=== PATIENT | male | born 1925 | race Caucasian/White ===

== ENCOUNTER 2017-02-19 16:00 | Inpatient (IN) | payer OTHER, MEDICARE ==
[2017-02-19] MEDS ORDERED: SODIUM CHLORIDE 250 ML IV STA ×2 (16:12→17:44)
[2017-02-19] MEDS ORDERED: ONDANSETRON 4 MG/2 ML VIAL IVPB ONE (16:12)
[2017-02-19] MEDS ORDERED: ONDANSETRON 4 MG/2 ML VIAL ONE ×2 (16:18→16:28)
[2017-02-19] MEDS ORDERED: morphine CARPU-JECT 2 MG/1 ML DISP.SYRIN IVPUSH ONE (16:24)
[2017-02-19] MEDS ORDERED: morphine CARPU-JECT 4 MG/1 ML DISP.SYRIN IVPUSH ONE (16:26)
--- NOTE | 2017-02-19 16:26 | PDOC ---
History of Present Illness - General History Source: Patient, Family Exam Limitations: No Limitations - History of Present Illness Initial Comments: 02/19/17 16:53 The patient is a 89 year old male, with a significant past medical history of atrial fibrillation , diverticulitis, bph, prior colon complications, and prior epistaxis, coronary heart disease, pacemaker, CT evidence of CVA without symptoms, who presents to the emergency department with, lower quadrant abdominal and nausea pain beginning this morning. As per patients son who lives with him, he woke up this morning with abdominal pain. He reports the patient ate at noon which made the pain worsen. As per patients son, he neither had any bowel movements nor passed gas since last night. He reports nausea without emesis.Patient reports dry mouth. He denies any recent fevers, chills, headache or dizziness. He denies any recent vomit, diarrhea or constipation. He denies any recent chest pain or shortness of breath. He denies any recent dysuria, frequency, urgency or hematuria. Allergies: Iodinated Contrast- Oral and IV Dye, Penicillins, Iodine Social History: Nonsmoker. Denies EtOH use and recreational drug use. Primary Care Physician: Dr. Jimmie Simms <Law Mann - Last Filed: 02/19/17 17:14> <J Luis Harvey - Last Filed: 02/24/17 08:35> - General Chief Complaint: Pain Stated Complaint: ABD PAIN, NAUSEA Time Seen by Provider: 02/19/17 16:10 Past History <Law Mann - Last Filed: 02/19/17 17:14> - Past Medical History Cardiac Disorders: Yes (A-FIB, PPM) COPD: No GI Disorders: Yes (DIVERTICULITIS) Disorders: Yes (BPH) HTN: Yes - Surgical History Abdominal Surgery: Yes (COLON RESECTION) - Suicide/Smoking/Psychosocial Hx Smoking Status: No Smoking History: Never smoked Have you smoked in the past 12 months: No Number of Cigarettes Smoked Daily: 0 Hx Alcohol Use: No Drug/Substance Use Hx: No Substance Use Type: None Hx Substance Use Treatment: No <J Luis Harvey - Last Filed: 02/24/17 08:35> - Past Medical History Allergies/Adverse Reactions: Allergies Allergy/AdvReac Type Severity Reaction Status Date / Time Iodinated Contrast- Oral and Allergy Intermediate Swelling Verified 02/19/17 16: 02 IV Dye [IV Dye, Iodine Containing Contrast ] iodine Allergy Verified 02/19/17 16:02 Home Medications: Ambulatory Orders Multivitamins [Multivit ([facility])] 1 tab PO DAILY 05/28/14 Cholecalciferol (Vitamin D3) [Vitamin D3] 2,000 unit PO DAILY 02/19/17 Warfarin Sodium [Coumadin] 1 mg PO ASDIR 02/19/17 Review of Systems - Review of Systems Comments:: 02/19/17 16:53 CONSTITUTIONAL: Absent: fever, no chills, no fatigue EYES: Absent: visual changes ENT: Absent: ear pain, no sore throat CARDIOVASCULAR: Absent: chest pain, no palpitations RESPIRATORY: Absent: cough, no SOB GI: + Diffuse Abdominal Pain +Nausea Absent: no vomiting, no constipation, no diarrhea GENITOURINARY: Absent: dysuria, no frequency, no hematuria MUSKULOSKELETAL: Absent: back pain, no arthralgia, no myalgia SKIN: Absent: rash NEURO: Absent: headache All Other Systems: Reviewed and Negative <Law Mann - Last Filed: 02/19/17 17:14> *Physical Exam - Vital Signs Last Vital Signs Temp Pulse Resp BP Pulse Ox 97.3 F L 78 18 148/97 96 02/19/17 16:00 02/19/17 16:00 02/19/17 16:00 02/19/17 16:00 02/19/17 16:00 - Physical Exam Comments: 02/19/17 17:14 GENERAL: Well developed, well nourished. Awake and alert. Cooperative. HEENT: +Dry mucous membranes. Normocephalic, atraumatic. PERRLA, EOMI. No conjunctival pallor. Sclera are non-icteric. Oropharynx is clear. NECK: Supple. Full ROM. No JVD. Carotid pulses 2+ and symmetric, without bruits. No thyromegaly. No lymphadenopathy. CARDIOVASCULAR: +Cardiac regular 2/6 systolic ejection murmur. Regular rate. No rubs, or gallops. Distal pulses are 2+ and symmetric. PULMONARY: No evidence of respiratory distress. Lungs clear to auscultation bilaterally. No wheezing, rales or rhonchi. ABDOMINAL: +Moderately distended, bowel sounds hypoactive, mild diffuse tenderness to palpation without localization no masses palpable. Soft. No rebound or guarding. No organomegaly. MUSCULOSKELETAL Normal range of motion at all joints. No bony deformities or tenderness. No CVA tenderness. EXTREMITIES: No cyanosis. No clubbing. No edema. No calf tenderness. SKIN: Warm and dry. Normal capillary refill. No rashes. No jaundice. NEUROLOGICAL: Alert, awake, appropriate. Cranial nerves 2-12 intact. No deficits to light touch and temperature in face, upper extremities and lower extremities. No motor deficits in the in face, upper extremities and lower extremities. Normoreflexic in the upper and lower extremities. Normal speech. Toes are down- going bilaterally. Gait is normal without ataxia. PSYCHIATRIC: Cooperative. Good eye contact. Appropriate mood and affect. <Law Mann - Last Filed: 02/19/17 17:14> - Vital Signs Last Vital Signs Temp Pulse Resp BP Pulse Ox 97.3 F L 78 18 148/97 96 02/19/17 16:00 02/19/17 16:00 02/19/17 16:00 02/19/17 16:00 02/19/17 16:00 <J Luis Harvey - Last Filed: 02/24/17 08:35> ED Treatment Course - LABORATORY CBC & Chemistry Diagram: 02/19/17 16:35 02/19/17 10:30 - Medications Given in the ED: ED Medications Discontinued Medications Generic Name Dose Route Start Last Admin Trade Name Daryl PRN Reason Stop Dose Admin Sodium Chloride 250 mls @ 500 mls/hr 02/19/17 16:12 02/19/17 16:35 Normal Saline - IV 02/19/17 16:41 500 mls/hr ASDIR STA Administration Morphine Sulfate 2 mg 02/19/17 16:24 02/19/17 16:47 Morphine Injection - IVPUSH 02/19/17 16:25 Not Given ONCE ONE Morphine Sulfate 4 mg 02/19/17 16:26 02/19/17 16:35 Morphine Injection - IVPUSH 02/19/17 16:27 4 mg ONCE ONE Administration Ondansetron HCl 4 mg 02/19/17 16:12 02/19/17 16:30 Zofran Injection IVPB 02/19/17 16:13 4 mg ONCE ONE Administration <Law Mann - Last Filed: 02/19/17 17:14> - LABORATORY CBC & Chemistry Diagram: 02/21/17 06:00 02/21/17 06:00 <J Luis Harvey - Last Filed: 02/24/17 08:35> Medical Decision Making - Medical Decision Making 02/19/17 16:26 Abdominal pain since this morning. Crampy, intermittent. Nausea but no vomiting. No bowel movements and passing no gas today. Multiple surgical procedures on the abdomen, including cholecystectomy, appendectomy, and 2 surgeries for diverticulitis, the last of which was 5 years ago and consisted of removal of almost the entire colon. The patient does not have a colostomy, but he has poor sphincter tone and fecal incontinence, according to his son Extensive past medical history including atrial fibrillation, on warfarin, coronary artery disease, sick sinus syndrome with pacemaker, multiple CVAs discovered on imaging, without clinical symptoms. BPH. Depression. Labile blood pressure which is sometimes high, sometimes low, according to his son. No diabetes. Abdomen is mildly distended. Bowel sounds were not heard despite auscultation for 60 seconds. There is diffuse tenderness to palpation without localization, with no guarding or rebound. There is fullness in both inguinal areas but no definite hernia is palpable. Remainder of the exam is normal. Most likely etiology is small bowel obstruction secondary to adhesions. Other possibilities viral gastroenteritis, renal colic, recurrent diverticulitis, mesenteric ischemia. Plan is IV hydration, Zofran, morphine, and imaging. GI and surgical consultations. Patient with no further vomiting. Pain is controlled and he is comfortable. Abdominal x-rays are nondiagnostic. CT scan is pending. Signed out to Dr. Mcghee 7 PM for further evaluation and disposition after CT scan is reviewed. <J Luis Harvey - Last Filed: 02/24/17 08:35> *DC/Admit/Observation/Transfer - Attestations Scribe Attestion: 02/19/17 16:54 Documentation prepared by Law Mann, acting as administrative medical director for J Luis Spear MD. <Law Mann - Last Filed: 02/19/17 17:14> <J Luis Harvey - Last Filed: 02/24/17 08:35> Diagnosis at time of Disposition: Small bowel obstruction due to adhesions - Discharge Dispostion Disposition: HOME Condition at time of disposition: Improved
[2017-02-19] MEDS ORDERED: morphine SULFATE 4 MG/ML VIAL ONE (16:30)
[2017-02-19 17:01] LABS: BASO % 0.7 % (0-2.0); EOS % 1.7 % (0-4.5); HEMATOCRIT 54.1 % (35.4-49); HEMOGLOBIN 18.8 GM/dl (11.7-16.9); LYMPH % 11.2 % (8-40); MCH 32.2 pg (25.7-33.7); MCHC 34.8 g/dl (32.0-35.9); MEAN CELL VOLUME 92.5 fl (80-96); MEAN PLT VOLUME 11.3 fl (7.5-11.1); MONO % 7.4 % (3.8-10.2); PLATELET COUNT 159 K/MM3 (134-434); RBC 5.84 M/mm3 (4.00-5.60); RDW 13.3 % (11.9-15.9)
[2017-02-19 17:02] LABS: INR 3.08 (0.82-1.09); PROTHROMBIN TIME (PATIENT) 33.7 SEC (10.2-13.0)
[2017-02-19 17:10] LABS: ALK PHOS 120 U/L (32-92); ANION GAP 8 (8-16); BILIRUBIN,TOTAL 1.4 mg/dl (0.2-1.0); BLOOD UREA NITROGEN 21 mg/dl (7-18); CALCIUM 9.6 mg/dl (8.4-10.2); CHLORIDE 102 mmol/L (98-107); CO2 26 mmol/L (22-28); CREATININE 1.1 mg/dl (0.6-1.3); GLUCOSE,RANDOM 122 mg/dl (74-106); POTASSIUM 4.2 mmol/L (3.5-5.1); SGOT/AST 40 U/L (10-42); SGPT/ALT 44 U/L (10-40); SODIUM 136 mmol/L (136-145); TOT PROT 7.2 g/dl (6.4-8.3)
[2017-02-19 17:26] LABS: TROPONIN I (DFP) < 0.03 ng/ml (0.03-0.50)
--- NOTE | 2017-02-19 21:11 | PDOC ---
*Physical Exam - Vital Signs Last Vital Signs Temp Pulse Resp BP Pulse Ox 97.6 F 86 18 139/64 95 02/19/17 20:34 02/19/17 20:34 02/19/17 20:34 02/19/17 20:34 02/19/17 20:34 <Flower Diaz I - Last Filed: 02/19/17 21:26> - Vital Signs Last Vital Signs Temp Pulse Resp BP Pulse Ox 97.6 F 86 18 139/64 95 02/19/17 20:34 02/19/17 20:34 02/19/17 20:34 02/19/17 20:34 02/19/17 20:34 <Law Mann - Last Filed: 02/19/17 21:55> ED Treatment Course - LABORATORY CBC & Chemistry Diagram: 02/19/17 16:35 02/19/17 10:30 - ADDITIONAL ORDERS Additional order review: Laboratory Results 02/19/17 02/19/17 02/19/17 17:42 10:30 10:30 PT with INR 33.7 H INR 3.08 H D Sodium 136 Potassium 4.2 Chloride 102 Carbon Dioxide 26 D Anion Gap 8 BUN 21 H Creatinine 1.1 Creat Clearance w eGFR > 60 Random Glucose 122 H Calcium 9.6 Total Bilirubin 1.4 H AST 40 D ALT 44 H D Alkaline Phosphatase 120 H Creatine Kinase 56 Troponin I < 0.03 L Total Protein 7.2 Albumin 4.0 Stool Occult Blood Negative 02/19/17 16:35 RBC 5.84 H MCV 92.5 MCHC 34.8 RDW 13.3 MPV 11.3 H D Neutrophils % 79.0 Lymphocytes % 11.2 D Monocytes % 7.4 Eosinophils % 1.7 Basophils % 0.7 - Medications Given in the ED: ED Medications Discontinued Medications Generic Name Dose Route Start Last Admin Trade Name Freq PRN Reason Stop Dose Admin Sodium Chloride 250 mls @ 500 mls/hr 02/19/17 16:12 02/19/17 16:35 Normal Saline - IV 02/19/17 16:41 500 mls/hr ASDIR STA Administration Sodium Chloride 250 mls @ 500 mls/hr 02/19/17 17:44 02/19/17 17:40 Normal Saline - IV 02/19/17 18:13 500 mls/hr ASDIR STA Administration Morphine Sulfate 2 mg 02/19/17 16:24 02/19/17 16:47 Morphine Injection - IVPUSH 02/19/17 16:25 Not Given ONCE ONE Morphine Sulfate 4 mg 02/19/17 16:26 02/19/17 16:35 Morphine Injection - IVPUSH 02/19/17 16:27 4 mg ONCE ONE Administration Ondansetron HCl 4 mg 02/19/17 16:12 02/19/17 16:30 Zofran Injection IVPB 02/19/17 16:13 4 mg ONCE ONE Administration <Flower Diaz I - Last Filed: 02/19/17 21:26> - LABORATORY CBC & Chemistry Diagram: 02/19/17 16:35 02/19/17 10:30 - ADDITIONAL ORDERS Additional order review: Laboratory Results 02/19/17 02/19/17 02/19/17 17:42 10:30 10:30 PT with INR 33.7 H INR 3.08 H D Sodium 136 Potassium 4.2 Chloride 102 Carbon Dioxide 26 D Anion Gap 8 BUN 21 H Creatinine 1.1 Creat Clearance w eGFR > 60 Random Glucose 122 H Calcium 9.6 Total Bilirubin 1.4 H AST 40 D ALT 44 H D Alkaline Phosphatase 120 H Creatine Kinase 56 Troponin I < 0.03 L Total Protein 7.2 Albumin 4.0 Stool Occult Blood Negative 02/19/17 16:35 RBC 5.84 H MCV 92.5 MCHC 34.8 RDW 13.3 MPV 11.3 H D Neutrophils % 79.0 Lymphocytes % 11.2 D Monocytes % 7.4 Eosinophils % 1.7 Basophils % 0.7 - Medications Given in the ED: ED Medications Discontinued Medications Generic Name Dose Route Start Last Admin Trade Name Freq PRN Reason Stop Dose Admin Sodium Chloride 250 mls @ 500 mls/hr 02/19/17 16:12 02/19/17 16:35 Normal Saline - IV 02/19/17 16:41 500 mls/hr ASDIR STA Administration Sodium Chloride 250 mls @ 500 mls/hr 02/19/17 17:44 02/19/17 17:40 Normal Saline - IV 02/19/17 18:13 500 mls/hr ASDIR STA Administration Morphine Sulfate 2 mg 02/19/17 16:24 02/19/17 16:47 Morphine Injection - IVPUSH 02/19/17 16:25 Not Given ONCE ONE Morphine Sulfate 4 mg 02/19/17 16:26 02/19/17 16:35 Morphine Injection - IVPUSH 02/19/17 16:27 4 mg ONCE ONE Administration Ondansetron HCl 4 mg 02/19/17 16:12 02/19/17 16:30 Zofran Injection IVPB 02/19/17 16:13 4 mg ONCE ONE Administration <Law Mann - Last Filed: 02/19/17 21:55> Progress Note - Progress Note Progress Note: Care of this patient was transferred to [place] from Dr. Montemayor at 1900 hrs. This is an 89-year-old male with history of multiple surgeries in the past and a history of partial small bowel obstruction in the past. Patient has had a hemicolectomy. Patient comes in complaining of abdominal pain nausea and vomiting. Patient's flat and upright didn't show a possibly of gas in the lower intestines. But no dilated loops of bowel. Patient has a mildly elevated white count but no left shift Patient has a CT of the abdomen and pelvis pending to rule out small bowel obstruction 20:30 CT of the abdomen does show a partial versus complete small bowel obstruction. Patient will be admitted to a observation bed for management of the obstruction. NG tube will be placed. <Flower Diaz I - Last Filed: 02/19/17 21:26> Medical Decision Making - Medical Decision Making 02/19/17 21:12 9:05PM Call placed to Dr. Angel Sandra's answering service, awaiting call back. 9:54pm A second call was placed to Dr. Angel Sandra's answering service, awaiting call back. Documentation prepared by Law Mann, acting as medical appointment scheduler for Flower Diaz MD. <Law Mann - Last Filed: 02/19/17 21:55> *DC/Admit/Observation/Transfer - Discharge Dispostion Admit: Yes <Flower Diaz I - Last Filed: 02/19/17 21:26> <Law Mann - Last Filed: 02/19/17 21:55> Diagnosis at time of Disposition: Small bowel obstruction due to adhesions - Discharge Dispostion Condition at time of disposition: Stable - Referrals Referrals: Jimmie Simms MD [Primary Care Provider] - - Patient Instructions - Post Discharge Activity
[2017-02-19 23:08] VITALS: BMI 27.8
[2017-02-19] MEDS ORDERED: SODIUM CHLORIDE 1,000 ML IV ONE (23:37)
[2017-02-19 23:40] LABS: URINE APPEARANCE Clear; URINE BILIRUBIN Negative (NEGATIVE); URINE BLOOD Negative (NEGATIVE); URINE GLUCOSE (UA) Negative (NEGATIVE); URINE KETONE Negative (NEGATIVE); URINE NITRITE Negative (NEGATIVE); URINE PROTEIN Trace (NEGATIVE); URINE UROBILINOGEN 0.2 (0.2-1.0)
[2017-02-19 23:42] LABS: URINE COLOR YELLOW
[2017-02-19] MEDS ORDERED: SODIUM CHLORIDE 1,000 ML IV SCH (23:45)
[2017-02-20 07:50] LABS: BASO % 1.3 % (0-2.0); EOS % 2.5 % (0-4.5); HEMATOCRIT 48.5 % (35.4-49); HEMOGLOBIN 16.2 GM/dl (11.7-16.9); LYMPH % 11.3 % (8-40); MCH 31.2 pg (25.7-33.7); MCHC 33.4 g/dl (32.0-35.9); MEAN CELL VOLUME 93.3 fl (80-96); MONO % 5.2 % (3.8-10.2); NEUT % 79.7 % (42.8-82.8); PLATELET COUNT 125 K/MM3 (134-434); RBC 5.19 M/mm3 (4.00-5.60); RDW 13.4 % (11.9-15.9); WHITE BLOOD COUNT 8.7 K/mm3 (4.0-10.8)
[2017-02-20 07:56] LABS: INR 3.46 (0.82-1.09); PROTHROMBIN TIME (PATIENT) 37.8 SEC (10.2-13.0)
[2017-02-20 07:58] LABS: ANION GAP 5 (8-16); BLOOD UREA NITROGEN 18 mg/dl (7-18); CALCIUM 8.2 mg/dl (8.4-10.2); CHLORIDE 109 mmol/L (98-107); CO2 24 mmol/L (22-28); GLUCOSE,RANDOM 91 mg/dl (74-106); MAGNESIUM 1.6 mg/dL (1.8-2.4); POTASSIUM 4.4 mmol/L (3.5-5.1); SODIUM 138 mmol/L (136-145)
[2017-02-20] MEDS ORDERED: METOCLOPRAMIDE HCL INJECTION 10 MG/2 ML VIAL IVPUSH PRN (09:49)
[2017-02-20] MEDS ORDERED: morphine CARPU-JECT 2 MG/1 ML DISP.SYRIN IVPUSH PRN (09:49)
--- NOTE | 2017-02-20 09:50 | HP ---
CHIEF COMPLAINT:abdominal pain PCP:[facility] HISTORY OF PRESENT ILLNESS: 89yo M with PMH afib on coumadin, SSS s/p PPM, diverticulitis s/p hemicolectomy , CVA, open appedectomy and open cholecystectomy presented with sudden onset of abdominal pain. states it was epigastric and did not improve. assoc with abdominal bloating. had similar episode in the past can not recall if he had surgery at that time. denies Cp, SOB, fever, chills, N/V/C/D. last BM was 2 days ago. ER course was notable for: (1) (2) (3) Recent Travel:none PAST MEDICAL HISTORY:as above PAST SURGICAL HISTORY:as above Social History: Smoking:denies Alcohol:denies Drugs: denies Family History:not contributory Allergies Iodinated Contrast- Oral and IV Dye [IV Dye, Iodine Containing Contrast ] Allergy (Intermediate, Verified 02/19/17 16:02) Swelling iodine Allergy (Verified 02/19/17 16:02) HOME MEDICATIONS: Home Medications Medication Instructions Recorded Multivitamins [Tab-A-Vit -] 1 tab PO DAILY 05/28/14 Cholecalciferol (Vitamin D3) 2,000 unit PO DAILY 02/19/17 [Vitamin D] Warfarin Sodium [Coumadin] 1 mg PO ASDIR 02/19/17 REVIEW OF SYSTEMS CONSTITUTIONAL: Absent: fever, chills, diaphoresis, generalized weakness, malaise, loss of appetite, weight change HEENT: Absent: rhinorrhea, nasal congestion, throat pain, throat swelling, difficulty swallowing, mouth swelling, ear pain, eye pain, visual changes CARDIOVASCULAR: Absent: chest pain, syncope, palpitations, irregular heart rate, lightheadedness , peripheral edema RESPIRATORY: Absent: cough, shortness of breath, dyspnea with exertion, orthopnea, wheezing, stridor, hemoptysis GASTROINTESTINAL: abdominal pain, abdominal distension Absent:, nausea, vomiting, diarrhea, constipation, melena, hematochezia GENITOURINARY: Absent: dysuria, frequency, urgency, hesitancy, hematuria, flank pain, genital pain MUSCULOSKELETAL: Absent: myalgia, arthralgia, joint swelling, back pain, neck pain SKIN: Absent: rash, itching, pallor HEMATOLOGIC/IMMUNOLOGIC: Absent: easy bleeding, easy bruising, lymphadenopathy, frequent infections ENDOCRINE: Absent: unexplained weight gain, unexplained weight loss, heat intolerance, cold intolerance NEUROLOGIC: Absent: headache, focal weakness or paresthesias, dizziness, unsteady gait, seizure, mental status changes, bladder or bowel incontinence PSYCHIATRIC: Absent: anxiety, depression, suicidal or homicidal ideation, hallucinations. PHYSICAL EXAMINATION Vital Signs - 24 hr 02/19/17 02/19/17 02/19/17 16:00 20:34 22:17 Temperature 97.3 F L 97.6 F 97.9 F Pulse Rate 78 88 Pulse Rate [ 86 Left Apical] Respiratory 18 18 18 Rate Blood Pressure 148/97 133/82 Blood Pressure 139/64 [Right Arm] O2 Sat by Pulse 96 95 96 Oximetry (%) 02/19/17 02/20/17 02/20/17 22:42 06:21 08:02 Temperature 97.9 F 97.7 F Pulse Rate 88 83 Pulse Rate [ Left Apical] Respiratory 18 19 18 Rate Blood Pressure 133/82 147/76 Blood Pressure [Right Arm] O2 Sat by Pulse 96 97 Oximetry (%) GENERAL: Awake, alert, and fully oriented, in no acute distress. HEAD: Normal with no signs of trauma. EYES: Pupils equal, round and reactive to light, extraocular movements intact, sclera anicteric, conjunctiva clear. No lid lag. EARS, NOSE, THROAT: Ears normal, nares patent, oropharynx clear without exudates. Moist mucous membranes. NECK: Normal range of motion, supple without lymphadenopathy, JVD, or masses. LUNGS: Breath sounds equal, clear to auscultation bilaterally. No wheezes, and no crackles. No accessory muscle use. HEART: Regular rate and rhythm, normal S1 and S2 without murmur, rub or gallop. ABDOMEN: Soft, + mild distended, hypoactive BS. nontender, dull to percusion, multiple old surgical scars no guarding, no rebound, no masses. No hepatomegaly or splenomegaly. MUSCULOSKELETAL: Normal range of motion at all joints. No bony deformities or tenderness. No CVA tenderness. UPPER EXTREMITIES: 2+ pulses, warm, well-perfused. No cyanosis. No clubbing. No peripheral edema. LOWER EXTREMITIES: 2+ pulses, warm, well-perfused. No calf tenderness. No peripheral edema. NEUROLOGICAL: Cranial nerves II-XII intact. Normal speech. Normal gait. PSYCHIATRIC: Cooperative. Good eye contact. Appropriate mood and affect. SKIN: Warm, dry, normal turgor, no rashes or lesions noted, normal capillary refill. Laboratory Results - last 24 hr 02/19/17 02/19/17 02/19/17 10:30 10:30 16:35 WBC 13.0 H D RBC 5.84 H Hgb 18.8 H D Hct 54.1 H MCV 92.5 MCH 32.2 MCHC 34.8 RDW 13.3 Plt Count 159 D MPV 11.3 H D Neutrophils % 79.0 Lymphocytes % 11.2 D Monocytes % 7.4 Eosinophils % 1.7 Basophils % 0.7 PT with INR 33.7 H INR 3.08 H D Sodium 136 Potassium 4.2 Chloride 102 Carbon Dioxide 26 D Anion Gap 8 BUN 21 H Creatinine 1.1 Creat Clearance w eGFR > 60 Random Glucose 122 H Calcium 9.6 Magnesium Total Bilirubin 1.4 H AST 40 D ALT 44 H D Alkaline Phosphatase 120 H Creatine Kinase 56 Troponin I < 0.03 L Total Protein 7.2 Albumin 4.0 Urine Color Urine Appearance Urine pH Ur Specific [place] Urine Protein Urine Glucose (UA) Urine Ketones Urine Blood Urine Nitrite Urine Bilirubin Urine Urobilinogen Ur Leukocyte Esterase Stool Occult Blood 02/19/17 02/19/17 02/20/17 17:42 23:30 07:30 WBC 8.7 D RBC 5.19 Hgb 16.2 D Hct 48.5 MCV 93.3 MCH 31.2 MCHC 33.4 RDW 13.4 Plt Count 125 L D MPV 10.0 D Neutrophils % 79.7 Lymphocytes % 11.3 Monocytes % 5.2 Eosinophils % 2.5 Basophils % 1.3 PT with INR INR Sodium Potassium Chloride Carbon Dioxide Anion Gap BUN Creatinine Creat Clearance w eGFR Random Glucose Calcium Magnesium Total Bilirubin AST ALT Alkaline Phosphatase Creatine Kinase Troponin I Total Protein Albumin Urine Color Yellow Urine Appearance Clear Urine pH 5.0 Ur Specific [place] 1.025 Urine Protein Trace Urine Glucose (UA) Negative Urine Ketones Negative Urine Blood Negative Urine Nitrite Negative Urine Bilirubin Negative Urine Urobilinogen 0.2 Ur Leukocyte Esterase Negative Stool Occult Blood Negative 02/20/17 02/20/17 07:30 07:30 WBC RBC Hgb Hct MCV MCH MCHC RDW Plt Count MPV Neutrophils % Lymphocytes % Monocytes % Eosinophils % Basophils % PT with INR 37.8 H INR 3.46 H Sodium 138 Potassium 4.4 Chloride 109 H Carbon Dioxide 24 Anion Gap 5 L BUN 18 Creatinine 1.0 Creat Clearance w eGFR Random Glucose 91 D Calcium 8.2 L Magnesium 1.6 L Total Bilirubin AST ALT Alkaline Phosphatase Creatine Kinase Troponin I Total Protein Albumin Urine Color Urine Appearance Urine pH Ur Specific [place] Urine Protein Urine Glucose (UA) Urine Ketones Urine Blood Urine Nitrite Urine Bilirubin Urine Urobilinogen Ur Leukocyte Esterase Stool Occult Blood ASSESSMENT/PLAN: 89yo M with PMH as above with multiple abdominal surgeries presented with SBO 1. SBO- medicine admission. NGT placed in ER with 300 dark bile. only about 100cc today this far. continue on low suction. pt now having flatus. Obtain AXR to evaluate. serial abdominal exams, daily AXR. cont NPO, IVF, pain and antiemetics. Surgery consulted 2. SUpratherapeutic INR- no signs of bleeding. hold coumadin. check INR. place on heparin ggt once INR subtherapeutic 3. Hypomagnesemia- Mg 2g 4. POlycytemia- dehydration. now improved 5. Leukocytosis- trending down 6. SSS s/p PPM- hold all oral meds. metoprolol prn for HR >120 or SBP >150. can re-start oral meds once able to advance diet 7. BPH- hold oral meds 8. DVT ppx- supratherapeutic INR hold pharmacologic. place SCD Visit type - Emergency Visit Emergency Visit: Yes ED Registration Date: 02/19/17 Care time: The patient presented to the Emergency Department on the above date and was hospitalized for further evaluation of their emergent condition. - New Patient This patient is new to me today: Yes Date on this admission: 02/26/17 - Critical Care Critical Care patient: No
[2017-02-20] MEDS ORDERED: MAGNESIUM SULF 50% (8.12 MEQ/2 ML-1 GM VIAL) IVPB ONE (09:59)
[2017-02-20] MEDS ORDERED: METOPROLOL TARTRATE 5 MG/5 ML VIAL IVPUSH PRN (10:00)
[2017-02-20] MEDS ORDERED: FAMOTIDINE IV 20 MG/12 ML VIAL IVPUSH SCH ×2 (10:00→10:45)
--- NOTE | 2017-02-20 10:06 | CONSULT ---
Consult Consult Specialty:: General Surgery Referred by:: ER Reason for Consultation:: SBO - History of Present Illness Chief Complaint: abdominal pain and distention History of Present Illness: 89yoM with multiple medical problems including "high and low blood pressure," afib on coumadin, Parkinson's disease, sick sinus syndrome s/p pacemaker, h/o diverticulitis s/p ?subtotal colectomy, h/o obstructions per chart, s/p L hip replacement, was in usual state of health yesterday morning, had coffee for breakfast, and then had sudden onset of abdominal pain across the middle of his abdomen, which came and went, without vomiting, last normal BM the day before, no f/c. He called ambulance and came to ER shortly after pain began. In the ER, he was afebrile, mildly elevated WBC, high H/H, INR 3.06, and CT was done showing likely partial or early SBO with transition in the left lower abdomen, presumed secondary to adhesions. He was admitted to the hospitalist service; NGT was placed with ~300ml output. He is getting IV hydration and is NPO. Voiding yellow urine. No BM yet, but reports passing a lot of gas this morning. His abdominal pain has resolved, and he states his abdomen is smaller than it was yesterday. AXR this am is pending. NG has put out minimal (~50ml) on floor. - History Source History Provided By: Patient, Medical Record Limitations to Obtaining History: Poor Historian - Past Medical History WARE TESTER: Yes: CVA, Parkinson's Cardio/Vascular: Yes: AFIB, HTN, Other (sick sinus syndrome) Gastrointestinal: Yes: Diverticulitis Renal/: Yes: BPH - Past Surgical History Past Surgical History: Yes: Appendectomy, Cholecystectomy, Colectomy, Joint Replacement (left hip), Permanent Pacemaker Additional Surgical History: pacemaker - Alcohol/Substance Use Hx Alcohol Use: No History of Substance Use: reports: None - Smoking History Smoking history: Never smoked Have you smoked in the past 12 months: No Aproximately how many cigarettes per day: 0 Home Medications - Allergies Allergies/Adverse Reactions: Allergies Allergy/AdvReac Type Severity Reaction Status Date / Time Iodinated Contrast- Oral and Allergy Intermediate Swelling Verified 02/19/17 16: 02 IV Dye [IV Dye, Iodine Containing Contrast ] iodine Allergy Verified 02/19/17 16:02 - Home Medications Home Medications: Ambulatory Orders Multivitamins [Tab-A-Vit -] 1 tab PO DAILY 05/28/14 Cholecalciferol (Vitamin D3) [Vitamin D] 2,000 unit PO DAILY 02/19/17 Warfarin Sodium [Coumadin] 1 mg PO ASDIR 02/19/17 Family Disease History - Family Disease History Family History: Unremarkable Review of Systems - Review of Systems Constitutional: denies: Chills, Fever Eyes: denies: Blurred Vision, Double Vision HENT: denies: Difficult Swallowing, Throat Pain Neck: denies: Swollen Glands, Tenderness Cardiovascular: denies: Chest Pain, Palpitations Respiratory: denies: Cough, SOB Gastrointestinal: reports: Abdominal Pain (with hpi), Bloating, Nausea, Vomiting (only in ER yesterday), Other (fecal incontinence per son per chart). denies: Constipation (no BM or flatus yesterday though), Diarrhea Genitourinary: denies: Burning, Dysuria Musculoskeletal: denies: Back Pain, Joint Pain Integumentary: denies: Change in Color, Rash Neurological: reports: Unsteady Gait (walks with cane, has walker at home but does not use). denies: Dizziness, Headache Physical Exam Vital Signs: Vital Signs Temperature 97.7 F 02/20/17 06:21 Pulse Rate 83 02/20/17 06:21 Respiratory Rate 18 02/20/17 08:02 Blood Pressure 147/76 02/20/17 06:21 O2 Sat by Pulse Oximetry (%) 97 02/20/17 08:02 Constitutional: Yes: Well Nourished, No Distress, Calm Eyes: Yes: Conjunctiva Clear, EOM Intact HENT: Yes: Atraumatic, Normocephalic, Other (NGT in place, clear output - sumped with air and is functioning) Neck: Yes: Supple, Trachea Midline Cardiovascular: Yes: Regular Rate and Rhythm. No: Murmur Respiratory: Yes: Regular, CTA Bilaterally Gastrointestinal: Yes: Soft, Hypoactive Bowel Sounds, Other (multiple healed scars). No: Distention (not tympanic, difficult to appreciate distention secondary to scars (smaller than yesterday per pt)), Tenderness ...Rectal Exam: Yes: Deferred Renal/: No: CVA Tenderness - Left, CVA Tenderness - Right Musculoskeletal: No: Joint Stiffness, Joint Swelling Extremities: No: Cool, Cyanosis Edema: No Peripheral Pulses WNL: Yes Integumentary: No: Jaundice, Rash Neurological: Yes: Alert, Oriented Psychiatric: Yes: Alert, Oriented Labs: CBC, BMP 02/20/17 07:30 02/20/17 07:30 CMP Sodium 138 mmol/L (136-145) 02/20/17 07:30 Potassium 4.4 mmol/L (3.5-5.1) 02/20/17 07:30 Chloride 109 mmol/L (98-107) H 02/20/17 07:30 Carbon Dioxide 24 mmol/L (22-28) 02/20/17 07:30 Anion Gap 5 (8-16) L 02/20/17 07:30 BUN 18 mg/dl (7-18) 02/20/17 07:30 Creatinine 1.0 mg/dl (0.6-1.3) 02/20/17 07:30 Creat Clearance w eGFR > 60 (>60) 02/19/17 10:30 Random Glucose 91 mg/dl (74-106) D 02/20/17 07:30 Calcium 8.2 mg/dl (8.4-10.2) L 02/20/17 07:30 Magnesium 1.6 mg/dL (1.8-2.4) L 02/20/17 07:30 Total Bilirubin 1.4 mg/dl (0.2-1.0) H 02/19/17 10:30 AST 40 U/L (10-42) D 02/19/17 10:30 ALT 44 U/L (10-40) H D 02/19/17 10:30 Alkaline Phosphatase 120 U/L (32-92) H 02/19/17 10:30 Creatine Kinase 56 IU/L (39-308) 02/19/17 10:30 Troponin I < 0.03 ng/ml (0.03-0.50) L 02/19/17 10:30 Total Protein 7.2 g/dl (6.4-8.3) 02/19/17 10:30 Albumin 4.0 g/dl (3.5-5.0) 02/19/17 10:30 Urine Test Results Urine Color Yellow 02/19/17 23:30 Urine Appearance Clear 02/19/17 23:30 Urine pH 5.0 (4.5-8) 02/19/17 23:30 Ur Specific [place] 1.025 (1.005-1.025) 02/19/17 23:30 Urine Protein Trace (NEGATIVE) 02/19/17 23:30 Urine Glucose (UA) Negative (NEGATIVE) 02/19/17 23:30 Urine Ketones Negative (NEGATIVE) 02/19/17 23:30 Urine Blood Negative (NEGATIVE) 02/19/17 23:30 Urine Nitrite Negative (NEGATIVE) 02/19/17 23:30 Urine Bilirubin Negative (NEGATIVE) 02/19/17 23:30 Ur Leukocyte Esterase Negative (NEGATIVE) 02/19/17 23:30 INR, PTT INR 3.46 (0.82-1.09) H 02/20/17 07:30 INR up from 3.06 Hb down from 18.8 - dehydration improving Mg a little low Imaging - Results X-ray: Pending Cat Scan: Report Reviewed (dilated loop of SB in left lower abdomen, transition point near abdominal wall; partial or early hi-grade/complete obstruction - no contrast used secondary to pt allergies), Image Reviewed Problem List - Problems (1) Small bowel obstruction due to adhesions Assessment/Plan: admitted to medicine NPO/IVF/NGT hold po meds until NGT is out serial AXR clinical exam improved by report - no pain or tenderness now distention improved per pt + flatus pt does not want any surgery will go slow with conservative measures GI/DVT prophylaxis Thank you for the opportunity to participate in the care of this patient. Code(s): K56.50 - INTESTNL ADHESIONS, UNSP TO PARTIAL VERSUS COMPLETE OBST (2) Dehydration Assessment/Plan: IV fluids, strict I/O's improving Code(s): E86.0 - DEHYDRATION (3) Parkinsons disease Assessment/Plan: ? if home med hold until po is resumed Code(s): G20 - PARKINSON'S DISEASE (4) Sick sinus syndrome Assessment/Plan: s/p pacemaker Code(s): I49.5 - SICK SINUS SYNDROME (5) Atrial fibrillation with controlled ventricular rate Assessment/Plan: on coumadin - supratherapeutic holding coumadin Code(s): I48.91 - UNSPECIFIED ATRIAL FIBRILLATION
[2017-02-20] MEDS ORDERED: FAMOTIDINE 20 MG/50 ML IVPB 20 MG/50 ML MG IVPB ONE (10:45)
[2017-02-20] MEDS ORDERED: SODIUM CHLORIDE 1,000 ML IV SCH (17:51)
[2017-02-20] MEDS: FAMOTIDINE 20 MG/50 ML IVPB 20 MG/50 ML MG IVPB SCH (21:18)
[2017-02-21] MEDS: FAMOTIDINE 20 MG/50 ML IVPB 20 MG/50 ML MG IVPB SCH ×2 (09:50→21:53)
[2017-02-21 10:03] LABS: HEMATOCRIT 48.2 % (35.4-49); HEMOGLOBIN 16.4 GM/dl (11.7-16.9); MCH 31.6 pg (25.7-33.7); MCHC 33.9 g/dl (32.0-35.9); MEAN CELL VOLUME 93.2 fl (80-96); MEAN PLT VOLUME 10.4 fl (7.5-11.1); PLATELET COUNT 107 K/MM3 (134-434); RBC 5.18 M/mm3 (4.00-5.60); RDW 13.2 % (11.9-15.9); WHITE BLOOD COUNT 10.4 K/mm3 (4.0-10.8)
[2017-02-21 10:21] LABS: ANION GAP 9 (8-16); BLOOD UREA NITROGEN 13 mg/dl (7-18); CALCIUM 8.5 mg/dl (8.4-10.2); CHLORIDE 106 mmol/L (98-107); CO2 24 mmol/L (22-28); CREATININE 0.9 mg/dl (0.6-1.3); GLUCOSE,RANDOM 61 mg/dl (74-106); MAGNESIUM 1.9 mg/dL (1.8-2.4); POTASSIUM 4.1 mmol/L (3.5-5.1); SODIUM 139 mmol/L (136-145)
[2017-02-21 10:22] LABS: ADD RBC MORPHOLOGY YES
--- NOTE | 2017-02-21 10:31 | PN ---
Physical Exam: SUBJECTIVE: Patient seen and examined Reports feeling better, had a small BM this morning,denies abdominal pain,N/V/ D. OBJECTIVE: Vital Signs Period Temp Pulse Resp BP Sys/Simpson Pulse Ox Last 24 Hr 97.4 F-98.0 F 78-93 18-20 132-145/75-81 90-93 GENERAL: The patient is awake, alert, and fully oriented, in no acute distress. HEAD: Normal with no signs of trauma. EYES: PERRL, extraocular movements intact, sclera anicteric, conjunctiva clear. No ptosis. ENT: Ears normal, nares patent, oropharynx clear without exudates, moist mucous membranes. NECK: Trachea midline, full range of motion, supple. LUNGS: Breath sounds equal, clear to auscultation bilaterally, no wheezes, no crackles, no accessory muscle use. HEART: Irregular without murmur, rub or gallop. ABDOMEN: Soft, non-tender,hypoactive bowel sounds non-distended, no guarding, no rebound, no hepatosplenomegaly, no masses, NGT tube out EXTREMITIES: 2+ pulses, warm, well-perfused, no edema. NEUROLOGICAL: Cranial nerves II through XII grossly intact. Normal speech, gait not observed. PSYCH: Normal mood, normal affect. SKIN: Warm, dry, normal turgor, groin rashes, callus on Rt-heel Laboratory Results - last 24 hr 02/20/17 02/21/17 02/21/17 07:30 06:00 06:00 WBC 10.4 RBC 5.18 Hgb 16.4 Hct 48.2 MCV 93.2 MCH 31.6 MCHC 33.9 RDW 13.2 Plt Count 107 L MPV 10.4 Neutrophils % No Result Required. Lymphocytes % No Result Required. Sodium 139 Potassium 4.1 Chloride 106 Carbon Dioxide 24 Anion Gap 9 BUN 13 D Creatinine 0.9 Random Glucose 61 L D Calcium 8.5 Magnesium 1.9 Blood Type B POSITIVE Antibody Screen Negative Active Medications Generic Name Dose Route Start Last Admin Trade Name Freq PRN Reason Stop Dose Admin Famotidine/Sodium Chloride 20 mg in 50 mls @ 144 mls/hr 02/20/17 22:00 09:50 Pepcid 20 Mg Premixed Ivpb - IVPB 144 mls/hr BID ELLIOT Administration Sodium Chloride 1,000 mls @ 100 mls/hr 02/20/17 17:51 Normal Saline - IV ASDIR ELLIOT Metoclopramide HCl 10 mg 02/20/17 09:49 Reglan Injection - IVPUSH Q6H PRN NAUSEA AND/OR VOMITING Metoprolol Tartrate 5 mg 02/20/17 10:00 Lopressor Injection - IVPUSH Q4H PRN HYPERTENSION Morphine Sulfate 2 mg 02/20/17 09:49 Morphine Injection - IVPUSH Q4H PRN PAIN CT Abdomen - reviewed Repeat FUA ASSESSMENT/PLAN: This is an 89 year old male with pmhx of A-fib on Coumadin, SSS s/p PPM, diverticulitis s/p hemicolectomy, CVA, open appendectomy and open cholecystectomy Parkinson's disease, ? depression and BPH,who presented with sudden onset of abdominal pain. Admitted with SBO. *SBO - GI following, conservative managmnet -NGT out - will start on clears and advance as tolerated -will cont on pain and antiemetics - FUA done stable * A-Fib- HR controlled - supratherapeutic INR- no signs of bleeding - will hold off on Coumadin and monitor - will resume home dose Lopressor * Hypomagnesemia- resolved - s/p Mg 2g replacement *Polycythemia likley due to dehydration.- improving - s/p hydration * Leukocytosis-- resolved *SSS s/p PPM-stable *BPH- will cont on home meds * Hx of Parkinson's disease - off meds as per pt son * ?Deprerssion - will resume home dose Lexapro * callus on Rt heel - out pt f/u * Groin rash - Nystatin powder ordered * Ronchi/ mild wheeze - denies sob - pulse ox stable -will hold off IVF and monitor - Neb tx ordered * DVT ppx- supratherapeutic INR hold pharmacologic. Dispo: Pt can be dc'd in am if able to tolerate diet as per sx. Visit type - Emergency Visit Emergency Visit: Yes ED Registration Date: 02/19/17 Care time: The patient presented to the Emergency Department on the above date and was hospitalized for further evaluation of their emergent condition. - New Patient This patient is new to me today: Yes Date on this admission: 02/21/17 - Critical Care Critical Care patient: No Quality Measures-Exclusions - VTE Prophylaxis Contraindications to VTE Prophylaxis: Current/fci anticoa
[2017-02-21 10:38] LABS: INR 3.12 (0.82-1.09); PROTHROMBIN TIME (PATIENT) 34.2 SEC (10.2-13.0)
[2017-02-21 11:23] LABS: ALBUMIN 3.4 g/dl (3.5-5.0); ALK PHOS 86 U/L (32-92); BILIRUBIN,DIRECT 0.5 mg/dL (0.0-0.3); SGOT/AST 38 U/L (10-42); SGPT/ALT 32 U/L (10-40)
--- NOTE | 2017-02-21 11:24 | PN ---
Progress Note, Physician History of Present Illness: Pt just back from radiology. Feeling well, had large BM this morning. Passing gas. No abdominal pain. NG with minimal output. Voiding frequently. Fluids decreased yesterday. - Current Medication List Current Medications: Active Medications Famotidine/Sodium Chloride (Pepcid 20 Mg Premixed Ivpb -) 20 mg in 50 mls @ 144 mls/hr IVPB BID ELLIOT Last Admin: 02/21/17 09:50 Dose: 144 mls/hr Sodium Chloride (Normal Saline -) 1,000 mls @ 100 mls/hr IV ASDIR ELLIOT Metoclopramide HCl (Reglan Injection -) 10 mg IVPUSH Q6H PRN PRN Reason: NAUSEA AND/OR VOMITING Metoprolol Tartrate (Lopressor Injection -) 5 mg IVPUSH Q4H PRN PRN Reason: HYPERTENSION Morphine Sulfate (Morphine Injection -) 2 mg IVPUSH Q4H PRN PRN Reason: PAIN - Objective Vital Signs: Vital Signs Temperature 97.4 F L 02/21/17 06:00 Pulse Rate 93 H 02/21/17 06:00 Respiratory Rate 20 02/21/17 06:00 Blood Pressure 145/81 02/21/17 06:00 O2 Sat by Pulse Oximetry (%) 93 L 02/21/17 08:46 Constitutional: Yes: Well Nourished, No Distress, Calm Eyes: Yes: Conjunctiva Clear, EOM Intact HENT: Yes: Atraumatic, Normocephalic, Other (NGT - removed at bedside) Cardiovascular: Yes: Pulse Irregular. No: Bradycardia, Tachycardia Respiratory: Yes: Regular, CTA Bilaterally Gastrointestinal: Yes: Normal Bowel Sounds, Soft, Other (multiple healed scars) . No: Distention, Tenderness Genitourinary: Yes: Other (mild intertriginal rash in left groin/pannus fold). No: Incontinence Extremities: No: Cool, Cyanosis Integumentary: Yes: Rash (in left groin fold), Skin Tear (left forearm with duoderm over (from this morning)), Other (callus on posterior right heel) Neurological: Yes: Alert, Oriented, Tremors (fine - fidgety with fingers) Labs: CBC, BMP 02/21/17 06:00 02/21/17 06:00 INR, PTT INR 3.12 (0.82-1.09) H 02/21/17 06:00 - ....Imaging X-ray: Image Reviewed (gas pattern different from yesterday, no significant dilation - appears improved) Problem List - Problems (1) Small bowel obstruction due to adhesions Assessment/Plan: NGT removed at bedside clinical exam with no pain or tenderness + flatus and BM stop IV fluids clears for lunch, advance as tolerated (fulls dinner, diet breakfast) can d/c after breakfast if tolerating no need for surgical followup recommended to son to consider having PMD refer to podiatry unclear if callus on heel is pressure related also, consider antifungal powder for left groin folds Thank you for the opportunity to participate in the care of this patient. Code(s): K56.50 - INTESTNL ADHESIONS, UNSP TO PARTIAL VERSUS COMPLETE OBST (2) Dehydration Assessment/Plan: resolved Code(s): E86.0 - DEHYDRATION (3) Parkinsons disease Assessment/Plan: no home meds per son - in early stages Code(s): G20 - PARKINSON'S DISEASE (4) Sick sinus syndrome Assessment/Plan: s/p pacemaker Code(s): I49.5 - SICK SINUS SYNDROME (5) Atrial fibrillation with controlled ventricular rate Assessment/Plan: on coumadin - still supratherapeutic holding coumadin will probably need to f/u with PMD within 1-2 days of discharge for recheck before resuming rate somewhat irregular but not tachy resume home meds now Code(s): I48.91 - UNSPECIFIED ATRIAL FIBRILLATION
[2017-02-21] MEDS ORDERED: ALBUTEROL SO4 0.5 % INH SOLN 2.5 MG/0.5 ML VIAL.NEB. NEB ONE (12:35)
[2017-02-21] MEDS: METOPROLOL TARTRATE 25 MG TABLET (FP) PO SCH ×2 (12:39→21:53)
[2017-02-21] MEDS: ALBUTEROL SO4 2.5/IPRATROPIUM 0.5 INH SOL 3 ML VIAL.NEB. NEB PRN (12:41)
[2017-02-21 12:43] LABS: TEAR DROP CELLS 1+
[2017-02-21] MEDS: TAMSULOSIN HCL 0.4 MG CAP.ER.24H (FP) PO SCH (12:43)
[2017-02-21] MEDS: FINASTERIDE 5 MG TABLET (FP) PO SCH (12:44)
[2017-02-21 12:50] LABS: PLATELET ESTIMATE DECREASED
[2017-02-21 12:52] LABS: ANISOCYTOSIS 1+
[2017-02-21] MEDS: NYSTATIN POWDER 100,000 UNITS/GM - 15 GM TOPICAL POWDER TP SCH (21:52)
[2017-02-22] MEDS: FAMOTIDINE 20 MG/50 ML IVPB 20 MG/50 ML MG IVPB SCH (09:52)
[2017-02-22] MEDS: METOPROLOL TARTRATE 25 MG TABLET (FP) PO SCH (09:52)
[2017-02-22] MEDS: TAMSULOSIN HCL 0.4 MG CAP.ER.24H (FP) PO SCH (09:52)
[2017-02-22] MEDS: FINASTERIDE 5 MG TABLET (FP) PO SCH (09:52)
[2017-02-22] MEDS: ALBUTEROL SO4 2.5/IPRATROPIUM 0.5 INH SOL 3 ML VIAL.NEB. NEB PRN (09:54)
[2017-02-22] MEDS: NYSTATIN POWDER 100,000 UNITS/GM - 15 GM TOPICAL POWDER TP SCH ×2 (09:55→10:00)
[2017-02-22] MEDS ORDERED: ESCITALOPRAM OXALATE 20 MG TABLET (FP) PO SCH (10:00)
[2017-02-22 10:15] LABS: INR 2.3 (0.82-1.09); PROTHROMBIN TIME (PATIENT) 25.3 SEC (10.2-13.0)
--- NOTE | 2017-02-22 11:30 | PN ---
Progress Note, Physician History of Present Illness: Pt sleeping comfortable, wakes easily. No abdominal pain, no nausea. Tolerating diet, had breakfast this am. Voiding well, having BMs, between loose and normal. No complaints. - Current Medication List Current Medications: Active Medications Albuterol/Ipratropium (Duoneb -) 1 amp NEB Q6H PRN PRN Reason: SHORTNESS OF BREATH Last Admin: 02/22/17 09:54 Dose: 1 amp Escitalopram Oxalate (Lexapro -) 20 mg PO DAILY [facility] Last Admin: 02/22/17 09:53 Dose: 20 mg Finasteride (Proscar -) 5 mg PO DAILY [facility] Last Admin: 02/22/17 09:52 Dose: 5 mg Famotidine/Sodium Chloride (Pepcid 20 Mg Premixed Ivpb -) 20 mg in 50 mls @ 144 mls/hr IVPB BID [facility] Last Admin: 02/22/17 09:52 Dose: 144 mls/hr Metoclopramide HCl (Reglan Injection -) 10 mg IVPUSH Q6H PRN PRN Reason: NAUSEA AND/OR VOMITING Metoprolol Tartrate (Lopressor -) 25 mg PO BID [facility] Last Admin: 02/22/17 09:52 Dose: 25 mg Morphine Sulfate (Morphine Injection -) 2 mg IVPUSH Q4H PRN PRN Reason: PAIN Nystatin (Nystop Powder -) 1 applic TP BID [facility] Last Admin: 02/22/17 10:00 Dose: 1 applic Tamsulosin HCl (Flomax -) 0.4 mg PO DAILY@0830 [facility] Last Admin: 02/22/17 09:52 Dose: 0.4 mg - Objective Vital Signs: Vital Signs Temperature 98.0 F 02/22/17 06:21 Pulse Rate 78 02/22/17 06:21 Respiratory Rate 18 02/22/17 06:21 Blood Pressure 110/49 02/22/17 06:21 O2 Sat by Pulse Oximetry (%) 94 L 02/22/17 06:21 Constitutional: Yes: Well Nourished, No Distress, Calm Eyes: Yes: Conjunctiva Clear, EOM Intact HENT: Yes: Atraumatic, Normocephalic Cardiovascular: Yes: Regular Rate and Rhythm Gastrointestinal: Yes: Soft, Abdomen, Obese, Other (multiple healed scars). No : Distention, Tenderness Extremities: No: Cool, Cyanosis Integumentary: Yes: Rash (L groin rash slightly improved, antifungal powder present), Skin Tear (R forearm, dressed). No: Jaundice Neurological: Yes: Alert, Oriented Labs: INR, PTT INR 2.30 (0.82-1.09) H 02/22/17 06:00 down to therapeutic Problem List - Problems (1) Small bowel obstruction due to adhesions Assessment/Plan: + bowel function no pain or tenderness SBO resolved can d/c home no need for surgical followup Thank you for the opportunity to participate in the care of this patient. Code(s): K56.50 - INTESTNL ADHESIONS, UNSP TO PARTIAL VERSUS COMPLETE OBST (2) Parkinsons disease Assessment/Plan: no home meds per son - in early stages Code(s): G20 - PARKINSON'S DISEASE (3) Sick sinus syndrome Assessment/Plan: s/p pacemaker Code(s): I49.5 - SICK SINUS SYNDROME (4) Atrial fibrillation with controlled ventricular rate Assessment/Plan: on coumadin - down to therapeutic holding coumadin will probably need to f/u with PMD within 1-2 days of discharge for recheck before resuming HR regular now on home meds Code(s): I48.91 - UNSPECIFIED ATRIAL FIBRILLATION
--- NOTE | 2017-02-22 12:15 | EKG ---
Test Reason : Blood Pressure : / mmHG Vent. Rate : 079 BPM Atrial Rate : 104 BPM P-R Int : 000 ms QRS Dur : 072 ms QT Int : 362 ms P-R-T Axes : 000 028 036 degrees QTc Int : 415 ms ATRIAL FIBRILLATION LOW VOLTAGE QRS NONSPECIFIC ST AND T WAVE ABNORMALITY ABNORMAL ECG WHEN COMPARED WITH ECG OF 13-SEP-1999 14:50, ATRIAL FIBRILLATION HAS REPLACED SINUS RHYTHM Confirmed by MILTON LANDA MD ([id number]) on 02/22/2017 12:15:19 PM Referred By: MD OSBORNE Confirmed By:MILTON LANDA MD
[2017-02-22 14:24] VITALS: BP 107/60; PULSE 86; TEMP 97.9
--- NOTE | 2017-02-22 14:35 | DS ---
Physical Exam: SUBJECTIVE: Patient seen and examined at bedside. Son present. Feels well. Ate a regular diet for lunch and tolerated well. +BMs +flatus. OBJECTIVE: Vital Signs Period Temp Pulse Resp BP Sys/Simpson Pulse Ox Last 24 Hr 97.9 F-98.1 F 78-86 18-20 107-132/49-70 90-94 PHYSICAL EXAM GENERAL: The patient is awake, alert, and fully oriented, in no acute distress. LUNGS: Breath sounds equal, clear to auscultation bilaterally, no wheezes, no crackles, no accessory muscle use. HEART: Regular rate and rhythm, S1, S2 without murmur, rub or gallop. ABDOMEN: Soft, nontender, nondistended, normoactive bowel sounds, no guarding, no rebound EXTREMITIES: 2+ pulses, warm, well-perfused, no edema. NEUROLOGICAL: Cranial nerves II through XII grossly intact. Normal speech, gait not observed. LABS Laboratory Results - last 24 hr 02/22/17 06:00 PT with INR 25.3 H INR 2.30 H HOSPITAL COURSE: Date of Admission:02/19/17 Date of Discharge: 02/22/17 89 year-old male with PMH significant for atrial fibrillation on coumadin, SSS s /p PPM, diverticulitis s/p hemicolectomy, CVA, open appendectomy and open cholecystectomy, Parkinson's disease, depression, and BPH. Admitted for SBO. SBO - GI following, conservative managmnet -NGT out - will start on clears and advance as tolerated -will cont on pain and antiemetics - FUA done stable * A-Fib- HR controlled - supratherapeutic INR- no signs of bleeding - will hold off on Coumadin and monitor - will resume home dose Lopressor * Hypomagnesemia- resolved - s/p Mg 2g replacement *Polycythemia likley due to dehydration.- improving - s/p hydration * Leukocytosis-- resolved *SSS s/p PPM-stable *BPH- will cont on home meds * Hx of Parkinson's disease - off meds as per pt son * ?Deprerssion - will resume home dose Lexapro Minutes to complete discharge: 35 Discharge Summary Reason For Visit: SMALL BOWEL OBSTRUCTION Current Active Problems Atrial fibrillation with controlled ventricular rate (Acute) Dehydration (Acute) Parkinsons disease (Acute) Sick sinus syndrome (Acute) Condition: Improved - Instructions Diet, Activity, Other Instructions: Resume your regular dosing schedule for warfarin when you get home today. You should see your primary care provider Dr. Landa this week to have your INR checked. Return to the emergency department for any new or worsening symptoms. Referrals: Jimmie Simms MD [Primary Care Provider] - 1 Week Disposition: HOME - Home Medications Comprehensive Discharge Medication List: Ambulatory Orders Multivitamins [Multivit ([facility] Formulary)] 1 tab PO DAILY 05/28/14 Cholecalciferol (Vitamin D3) [Vitamin D3] 2,000 unit PO DAILY 02/19/17 Warfarin Sodium [Coumadin] 1 mg PO ASDIR 02/19/17 This patient is new to me today: Yes Date on this admission: 02/22/17 Emergency Visit: Yes ED Registration Date: 02/19/17 Care time: The patient presented to the Emergency Department on the above date and was hospitalized for further evaluation of their emergent condition. - Discharge Referral Referred to [facility] Yes Physician Referral: Jimmie Simms MD (Int Med)
== END 2017-02-22 15:00 | disposition home or self-care (01) | DRG 389 ==
LOC: FER 16:00 → FM/S 22:17 → OBSVTOIN 22:17 → FM/S 02-21 11:00
PROVIDERS: ADMIT Internal Medicine; ATTEND Nurse Practitioner Family
DX: K56.51 Intestinal adhesions [bands], with partial obstruction (principal); J98.11 Atelectasis; I10 Essential (primary) hypertension; K57.30 Diverticulosis of large intestine without perforation or abscess without bleeding; N40.0 Benign prostatic hyperplasia without lower urinary tract symptoms; I25.10 Atherosclerotic heart disease of native coronary artery without angina pectoris; Z95.0 Presence of cardiac pacemaker; Z86.73 Personal history of transient ischemic attack (TIA), and cerebral infarction without residual deficits; Z90.49 Acquired absence of other specified parts of digestive tract; E83.42 Hypomagnesemia; D72.829 Elevated white blood cell count, unspecified; R79.1 Abnormal coagulation profile; Z96.642 Presence of left artificial hip joint; E86.0 Dehydration; G20 Parkinson's disease; D75.1 Secondary polycythemia
CPT/HCPCS: 36415; 71010-TC; 71020-TC; 74020-TC; 74176-TC; 80048; 80053; 80076; 81003; 82272; 82550; 83735; 84484; 85025; 85610; 86850; 86900; 86901; 93005; 94640; 99284-25

== ENCOUNTER 2017-03-10 17:49 | Emergency (ER) | payer OTHER, MEDICARE ==
--- NOTE | 2017-03-10 17:52 | PDOC ---
History of Present Illness - General Chief Complaint: Pain, Acute Stated Complaint: FALL BACK PAIN AND LEFT KNEE PAIN Time Seen by Provider: 03/10/17 17:51 - History of Present Illness Initial Comments: 03/10/17 17:56 Chief complaint: Pain left knee and lower back History of present illness: Patient has frequent falls due to generalized weakness, today was in his kitchen, felt his left leg give out and he fell slowly to the floor. No loss of consciousness. No injury to the head or neck. Was unable to arise on his own because of the pain in his knee and back Past medical history: Atrial fibrillation on warfarin. Recurrent bowel obstructions, most recently 3 weeks ago, resolved with NG tube and bowel rest. Review of systems: No recent abdominal pain, chest pain, shortness of breath, URI symptoms, cough, fever or chills, urinary tract symptoms, visual or focal neurologic symptoms. Chronic gait instability with numerous falls, thought to be due to generalized weakness and aging. Denies injury to his head neck chest abdomen or other extremities. Social history: Lives with his son, cares for herself during the day, limited ability to ambulate. No history of tobacco alcohol or drug abuse Family history: Reviewed and noncontributory Physical exam: Alert, no acute distress, cooperative Afebrile, vital signs normal Head atraumatic. PERRLA, fundi benign, ENT clear Neck without tenderness or deformity, full range of motion without pain Chest clear, full breath sounds bilaterally, no wheezes rales or rhonchi No chest wall tenderness or deformity CV regular without murmur rub or gallop pulses full and symmetric no JVD or edema Abdomen soft nontender without mass or organomegaly. Bowel sounds present and normal LS spine: No deformity or inflammatory changes. No point tenderness. There is maintenance of the normal lumbar lordosis. No spasm. Left knee: Chronic synovial thickening, no deformity or effusion, no point tenderness, but limited range of motion in flexion which the patient reports is new since his fall. No ligament laxity or stress tenderness can be demonstrated. Lockman is negative Neurological C2 to 12 intact. Generalized weakness but no focal deficits. Gait appears intact Impression: 1 of many frequent falls due to generalized weakness and aging, trauma to the low back and left knee, no reported trauma or signs of injury to the head neck chest abdomen or other extremities. Plan: X-ray of the left knee and LS-spine. Further treatment depending on results. 03/10/17 18:03 Past History - Past Medical History Allergies/Adverse Reactions: Allergies Allergy/AdvReac Type Severity Reaction Status Date / Time Iodinated Contrast- Oral and Allergy Severe Swelling Verified 03/10/17 17:52 IV Dye [IV Dye, Iodine Containing Contrast ] iodine Allergy Severe Difficulty Verified 03/10/17 17:52 Breathing Penicillins Allergy Intermediate Itching Verified 03/10/17 17:53 Home Medications: Ambulatory Orders Multivitamins [Multivit ([facility] Formul[facility])] 1 tab PO DAILY 05/28/14 Cholecalciferol (Vitamin D3) [Vitamin D3] 2,000 unit PO DAILY 02/19/17 Warfarin Sodium [Coumadin] 1 mg PO ASDIR 02/19/17 Oxycodone HCl/Acetaminophen [Percocet 5-325 mg Tablet] 1 tab PO Q6H #8 tablet MDD 4 03/10/17 Tramadol HCl 50 mg PO BID 03/10/17 Cardiac Disorders: Yes (A-FIB, PPM) COPD: No GI Disorders: Yes (DIVERTICULITIS) Disorders: Yes (BPH) HTN: Yes - Surgical History Abdominal Surgery: Yes (COLON RESECTION X2) Orthopedic Surgery: Yes (left hip replacement) - Suicide/Smoking/Psychosocial Hx Smoking Status: No Smoking History: Never smoked Have you smoked in the past 12 months: No Number of Cigarettes Smoked Daily: 0 Hx Alcohol Use: No Drug/Substance Use Hx: No Substance Use Type: None Hx Substance Use Treatment: No Medical Decision Making - Medical Decision Making Pain much improved. Awaiting x-rays. Signed out to Dr. Mcghee 7 PM pending x-ray and further evaluation and treatment. *DC/Admit/Observation/Transfer Diagnosis at time of Disposition: Back pain due to injury, Left knee sprain - Discharge Dispostion Disposition: HOME Condition at time of disposition: Stable - Prescriptions Prescriptions: Oxycodone HCl/Acetaminophen [Percocet 5-325 mg Tablet] 1 tab PO Q6H #8 tablet MDD 4 - Referrals - Patient Instructions Additional Instructions: For the pain take Tylenol 2 tablets every 4 hours if needed if he needs something stronger in place of the Tylenol U can take 1 Percocet every 6 hours The Percocet does have Tylenol in it so do not take Tylenol at the same time as the Percocet Return to the emergency department immediately with ANY new, persistent or worsening symptoms. Continue any medications as previously prescribed by your physician. You should follow up with your primary doctor as soon as possible regarding today's emergency department visit. . Please make sure your doctor reviews the results of your emergency evaluation. Thank you for coming to the Emergency Department today for your care. It was a pleasure to see you today. Please note that your evaluation is INCOMPLETE until you follow-up with your doctor. - Post Discharge Activity
[2017-03-10 18:13] VITALS: BP 147/92; PULSE 86; TEMP 98.4; BMI 28.1
--- NOTE | 2017-03-10 19:36 | PDOC ---
*Physical Exam - Vital Signs Last Vital Signs Temp Pulse Resp BP Pulse Ox 98.4 F 86 20 147/92 95 03/10/17 17:50 03/10/17 17:50 03/10/17 17:50 03/10/17 17:50 03/10/17 17:50 ED Treatment Course - Medications Given in the ED: ED Medications Discontinued Medications Generic Name Dose Route Start Last Admin Trade Name Daryl PRN Reason Stop Dose Admin Oxycodone/Acetaminophen 2 combo 03/10/17 18:27 03/10/17 18:29 Percocet 5/325 - PO 03/10/17 18:28 2 combo ONCE ONE Administration Progress Note - Progress Note Progress Note: Care of this patient was transferred to me from Dr. Montemayor at 1900 hrs. This is an elderly gentleman who has difficulty with balance and frequent falls. Patient fell today and is complaining of some low back pain and left knee pain. Patient did not hit his head and denies any other complaints Patient has x-rays of his lumbar spine and left knee pending. 19:35 X-ray lumbar spine shows some disc space narrowing L5-S1 with some degenerative changes however when comparison with x-rays from 2012 there is no significant interval change other than some increase in the arthritic changes Knee is status post replacement there is no acute fracture or evidence of any acute pathology Assessment and plan: This is an 89-year-old male with history of gait difficulty and frequent chronic falls patient did not hit his head and denies any complaints other than left knee and low back pain. Patient x-rays are negative for any acute pathology. Patient was given Percocet here in the emergency room. Will send a prescription to his pharmacy for a few more Percocets that he can take over the next couple a days. Patient discharged will follow-up with his primary care doctor. *DC/Admit/Observation/Transfer Diagnosis at time of Disposition: Back pain due to injury Left knee sprain Qualifiers: Encounter type: initial encounter Involved ligament of knee: other ligament Qualified Code(s): S83.8X2A - Sprain of other specified parts of left knee, initial encounter - Discharge Dispostion Disposition: HOME Admit: No - Referrals - Patient Instructions Additional Instructions: For the pain take Tylenol 2 tablets every 4 hours if needed if he needs something stronger in place of the Tylenol U can take 1 Percocet every 6 hours The Percocet does have Tylenol in it so do not take Tylenol at the same time as the Percocet Return to the emergency department immediately with ANY new, persistent or worsening symptoms. Continue any medications as previously prescribed by your physician. You should follow up with your primary doctor as soon as possible regarding today's emergency department visit. . Please make sure your doctor reviews the results of your emergency evaluation. Thank you for coming to the Emergency Department today for your care. It was a pleasure to see you today. Please note that your evaluation is INCOMPLETE until you follow-up with your doctor. - Post Discharge Activity
[2017-03-10] MEDS ORDERED: ONDANSETRON *ODT* 4 MG TABLET ONE (20:10)
[2017-03-10] MEDS ORDERED: ONDANSETRON *ODT* 4 MG TABLET SL ONE (20:27)
== END 2017-03-10 20:01 | disposition home or self-care (01) ==
LOC: FER 17:49
DX: S83.92XA Sprain of unspecified site of left knee, initial encounter (principal); M25.562 Pain in left knee; M54.9 Dorsalgia, unspecified; W18.39XA Other fall on same level, initial encounter; Z91.81 History of falling; Y93.89 Activity, other specified; Y92.9 Unspecified place or not applicable
CPT/HCPCS: 72100-TC; 73560-TC-LT; 99281-25